=== PATIENT | male | born 1965 | race Caucasian/White ===

== ENCOUNTER 2018-12-03 22:09 | Emergency (ER) | payer MEDICARE, SELFPAY ==
[2018-12-03 22:14] VITALS: BP 202/95; PULSE 95; RESP 16; TEMP 36.4; O2SAT 99
[2018-12-03] MEDS: LORazepam 1 MG TAB PO (22:41)
--- NOTE | 2018-12-03 23:02 | W.ED.GENAD ---
Discharge Plan Disposition Patient Disposition: [facility] Condition: Stable Discharge Details Chief Complaint: Suicide-Atempt Clinical Impression: Depression Primary Care Provider: None,None ED Provider: Yogesh Dodge Home Meds and New Rx's Prescriptions: No Action diazepam [Valium] 10 MG tablet 10 mg PO TID RF: 0 lamotrigine [Lamictal] 25 mg Tablet, Chewable Dispersible 50 mg PO DAILY RF: 0 metoprolol tartrate 50 mg Tablet 50 mg PO DAILY RF: 0 Discharge Data Discharge Date/Time-TO BE ENTERED AT DEPARTURE: 12/04/18 12:24 Medical Decision Making <Colton Del Valle MD - Last Filed: 12/05/18 20:08> Patient brought in for mental health evaluation. He has superficial lacerations to the neck and wrist which did not require suturing. We will update his tetanus. Will obtain EKG and labs for medical clearance. We will give Ativan for his agitation/irritability. Will have a CPOS assigned. Mental health to see. 00:15 - EKG is normal. Laboratory studies are fine. Alcohol level 186. Aspirin low normal below 10. Tylenol negative. Drug screen positive for benzodiazepines only. Mental health notified and on the way in. Patient calm after Ativan. 08:00 -No issues overnight. Patient has been seen by mental health. Continues to have CPOS present. Is on a voluntary at this point for admission. If changes mind and wants to leave needs reevaluation and possible he EE. Asking for a Lidoderm patch for a chronic intermittent pain problem. Will sign out to oncoming physician while waiting for responses back from psychiatric facilities contacted last night by mental health. Lab Data Lab results reviewed: Yes I reviewed the patient's lab results. ECG Data Attestation: I personally reviewed and interpreted this ECG (s) as follows: Interpretation: Normal sinus rhythm at a rate of 63. Left axis. Normal intervals. Early repolarization in precordial leads. Otherwise normal ST segments. <Yogesh Dodge MD - Last Filed: 12/04/18 11:56> ECG Data Attestation: I personally reviewed and interpreted this ECG (s) as follows: Prior ECG tracings: not available for review Interpretation: sinus rhythm, let anterior fascicular block, left axis, no acute st t wave ischemic changes HPI <Colton Del Valle MD - Last Filed: 12/05/18 20:08> General Mode of arrival: ambulatory. Date/Time Provider Initiated Documentation: 12/03/18 22:35. Limitations to Documentation: no limitations. Information obtained by: patient and family. HPI Narrative: Patient brought in by family member for mental health evaluation. We did receive a phone call from the forgesmith stating that patient had cut himself and left a will signed in blood. Patient has been drinking tonight. Apparently patient's providers were trying to wean him off benzodiazepines. They tried him on Lamictal while doing this. He had issues and adverse effects with the Lamictal. He has become more depressed. He denies overdosing. He denies street drugs. He has back pain but he has chronic back problems. He has been using Tylenol and Motrin for this. He feels very agitated internally but appears to be in relative control externally. Family member is staying in the room with him. Related Data Home Medications Medication Instructions Recorded Confirmed diazepam [Valium] 10 mg PO TID 01/04/14 12/04/18 lamotrigine [Lamictal] 50 mg PO DAILY 12/04/18 12/04/18 metoprolol tartrate 50 mg PO DAILY 12/04/18 12/04/18 Allergies Allergy/AdvReac Type Severity Reaction Status Date / Time No Known Allergies Allergy Unverified 01/04/14 18:57 General Stated Complaint: Suicide-Atempt TERELL: 2 Review of Systems <Colton Del Valle MD - Last Filed: 12/05/18 20:08> Constitutional Denies fever(s), Reports frequent falls (after starting lamictal), Denies headache(s) and Denies weakness Eyes Denies change in vision and Denies eye pain ENT Denies vertigo, Denies otalgia, Denies headache(s), Denies nasal congestion, Denies neck pain and Denies sore throat Cardiovascular Denies chest pain, Denies edema and Denies dyspnea Respiratory Denies cough and Denies dyspnea Gastrointestinal Denies abdominal pain, Denies diarrhea, Denies nausea and Denies vomiting Musculoskeletal Reports back pain and Denies neck pain Integumentary/Breasts Reports wounds Neurologic Denies vertigo, Reports frequent falls (after starting lamictal), Denies headache(s), Denies focal weakness, Denies paresthesias and Denies weakness Psychiatric Reports irritability and Reports suicidal ideation PFS <Colton Del Valle MD - Last Filed: 12/05/18 20:08> Medical History Anxiety (Chronic) Back pain (Chronic) HTN (hypertension) (Chronic) Social History Smoking and Tabacco status: Current every day Exam <Colton Del Valle MD - Last Filed: 12/05/18 20:08> Const General: cooperative, no acute distress and intoxicated appearing Orientation: alert and oriented x3 HENMT Head: normocephalic and atraumatic Eyes Pupils: PERRL EOM: EOM intact bilaterally Neck Neck: full ROM, trachea midline and supple Other: superficial lacerations to right anterior neck Resp Effort & Inspection: normal respiratory effort Auscultation: clear to auscultation bilaterally Cardio Rate: regular rate Rhythm: regular rhythm Heart Sounds: S1 normal and S2 normal Skin Trauma: laceration (left wrist and right neck; superficial) Neuro General: alert, oriented x3, gait normal, no focal motor deficits and CN's II-XI intact bilaterally Speech: abnormal speech slurred (mild) Extrem General: no clubbing, cyanosis or edema Psych Appearance: grossly normal Mental Status: mental status grossly normal Speech and Movement: slurred speech (mild) Mood: irritable mood Affect: irritable affect Attitude: cooperative Thought Process: circumstantial Thought Content: suicidality Insight: limited Judgment: poor Course <Colton eDl Valle MD - Last Filed: 12/05/18 20:08> Vital Signs Temperature 97.5 F L 12/03/18 22:14 Pulse 95 H 12/03/18 22:14 Respiratory Rate 16 12/03/18 22:14 Blood Pressure 202/95 H 12/03/18 22:14 Pulse Oximetry 99 12/03/18 22:14 Temperature 97.5 F L 12/03/18 22:14 Temperature Source Temporal Artery Scan 12/03/18 22:14 Pulse 95 H 12/03/18 22:14 Respiratory Rate 16 12/03/18 22:14 Respiratory Effort 12/03/18 22:16 Blood Pressure 202/95 H 12/03/18 22:14 Blood Pressure Position Sitting 12/03/18 22:14 Pulse Oximetry 99 12/03/18 22:14 Oxygen Delivery Method Room Air 12/03/18 22:14 Oxygen Flow Rate 0 12/03/18 22:14 Sign Out <Colton Del Valle MD - Last Filed: 12/05/18 20:08> Sign Out Data: Sign Out Comment: pending psychiatric placement Last updated by Colton Del Valle MD at 12/04/18 08:02 Post-Handoff Eval: pt has been stable here, has had htn but missed his home metorpolol dose last night so this was ordered and also requesting valium and feels like he will get agitated if not, will order this. AWaiting mental health placement, if none found will be signed out at change of shift to oncoming provider [facility], dwayne calderon sewing demonstrator accepting provider. PT will go by . Has remained calm and stable here, caox4
[2018-12-03 23:05] LABS: Abs Immature Grans 0.01 k/cumm (0.0-0.09); Absolute Basophil Count 0.02 k/cumm (0.0-0.2); Absolute Eosinophil Count 0.03 k/cumm (0.0-0.7); Absolute Lymphocyte Count 2.12 k/cumm (1.2-3.4); Absolute Monocyte Count 0.42 k/cumm (0.11-0.7); Absolute Neutrophil Count 2.69 k/cumm (1.2-6.7); Basophils % 0.4; Eosinophils % 0.6; HCT 45.4 % (40.0-50.0); HGB 15.5 g/dL (13.5-17.5); Immature Grans % 0.2; Lymphocytes % 40.1; Mean Corp. HGB Concentration 34.1 g/dL (32.0-36.0); Mean Corpuscular Volume 90.8 fL (80-95); Mean Platelet Volume 9.1 fL (8.0-11.0); Monocytes % 7.9; Neutrophils % 50.8; Platelet Count 198 x1000/uL (130-400); White Blood Cell Count 5.29 k/cumm (4.4-10.8)
[2018-12-03 23:09] LABS: Tricyclic Antidepressants Negative (Negative)
--- NOTE | 2018-12-03 23:12 | ED.GENADUL_ITS ---
Discharge Plan Disposition Patient Disposition: [facility] Condition: Stable Discharge Details Chief Complaint: Suicide-Atempt Clinical Impression: Depression Primary Care Provider: None,None ED Provider: Yogesh Dodge Home Meds and New Rx's Prescriptions: No Action diazepam [Valium] 10 MG tablet 10 mg PO TID RF: 0 lamotrigine [Lamictal] 25 mg Tablet, Chewable Dispersible 50 mg PO DAILY RF: 0 metoprolol tartrate 50 mg Tablet 50 mg PO DAILY RF: 0 Discharge Data Discharge Date/Time-TO BE ENTERED AT DEPARTURE: 12/04/18 12:24 Medical Decision Making <Colton Del Valle MD - Last Filed: 12/05/18 20:08> Patient brought in for mental health evaluation. He has superficial lacerations to the neck and wrist which did not require suturing. We will update his tetanus. Will obtain EKG and labs for medical clearance. We will give Ativan for his agitation/irritability. Will have a CPOS assigned. Mental health to see. 00:15 - EKG is normal. Laboratory studies are fine. Alcohol level 186. Aspirin low normal below 10. Tylenol negative. Drug screen positive for benzodiazepines only. Mental health notified and on the way in. Patient calm after Ativan. 08:00 -No issues overnight. Patient has been seen by mental health. Continues to have CPOS present. Is on a voluntary at this point for admission. If changes mind and wants to leave needs reevaluation and possible he EE. Asking for a Lidoderm patch for a chronic intermittent pain problem. Will sign out to oncoming physician while waiting for responses back from psychiatric facilities contacted last night by mental health. Lab Data Lab results reviewed: Yes I reviewed the patient's lab results. ECG Data Attestation: I personally reviewed and interpreted this ECG (s) as follows: Interpretation: Normal sinus rhythm at a rate of 63. Left axis. Normal intervals. Early repolarization in precordial leads. Otherwise normal ST segments. <Yogesh Dodge MD - Last Filed: 12/04/18 11:56> ECG Data Attestation: I personally reviewed and interpreted this ECG (s) as follows: Prior ECG tracings: not available for review Interpretation: sinus rhythm, let anterior fascicular block, left axis, no acute st t wave ischemic changes HPI <Colton Del Valle MD - Last Filed: 12/05/18 20:08> General Mode of arrival: ambulatory . Date/Time Provider Initiated Documentation: 12/03/18 22:35 . Limitations to Documentation: no limitations . Information obtained by: patient and family . HPI Narrative: Patient brought in by family member for mental health evaluation. We did receive a phone call from the [employer] security officer stating that patient had cut himself and left a will signed in blood. Patient has been drinking tonight. Apparently patient's providers were trying to wean him off benzodiazepines. They tried him on Lamictal while doing this. He had issues and adverse effects with the Lamictal. He has become more depressed. He denies overdosing. He denies street drugs. He has back pain but he has chronic back problems. He has been using Tylenol and Motrin for this. He feels very agitated internally but appears to be in relative control externally. Family member is staying in the room with him. Related Data Home Medications Medication Instructions Recorded Confirmed diazepam [Valium] 10 mg PO TID 01/04/14 12/04/18 lamotrigine [Lamictal] 50 mg PO DAILY 12/04/18 12/04/18 metoprolol tartrate 50 mg PO DAILY 12/04/18 12/04/18 Allergies Allergy/AdvReac Type Severity Reaction Status Date / Time No Known Allergies Allergy Unverified 01/04/14 18:57 General Stated Complaint: Suicide-Atempt TERELL: 2 Review of Systems <Colton Del Valle MD - Last Filed: 12/05/18 20:08> Constitutional Denies fever(s), Reports frequent falls (after starting lamictal), Denies headache(s) and Denies weakness Eyes Denies change in vision and Denies eye pain ENT Denies vertigo, Denies otalgia, Denies headache(s), Denies nasal congestion, De nies neck pain and Denies sore throat Cardiovascular Denies chest pain, Denies edema and Denies dyspnea Respiratory Denies cough and Denies dyspnea Gastrointestinal Denies abdominal pain, Denies diarrhea, Denies nausea and Denies vomiting Musculoskeletal Reports back pain and Denies neck pain Integumentary/Breasts Reports wounds Neurologic Denies vertigo, Reports frequent falls (after starting lamictal), Denies headache(s), Denies focal weakness, Denies paresthesias and Denies weakness Psychiatric Reports irritability and Reports suicidal ideation PFS <Colton Del Valle MD - Last Filed: 12/05/18 20:08> Medical History Anxiety (Chronic) Back pain (Chronic) HTN (hypertension) (Chronic) Social History Smoking and Tabacco status: Current every day Exam <Colton Del Valle MD - Last Filed: 12/05/18 20:08> Const General: cooperative, no acute distress and intoxicated appearing Orientation: alert and oriented x3 HENMT Head: normocephalic and atraumatic Eyes Pupils: PERRL EOM: EOM intact bilaterally Neck Neck: full ROM, trachea midline and supple Other: superficial lacerations to right anterior neck Resp Effort & Inspection: normal respiratory effort Auscultation: clear to auscultation bilaterally Cardio Rate: regular rate Rhythm: regular rhythm Heart Sounds: S1 normal and S2 normal Skin Trauma: laceration (left wrist and right neck; superficial) Neuro General: alert, oriented x3, gait normal, no focal motor deficits and CN's II-XI intact bilaterally Speech: abnormal speech slurred (mild) Extrem General: no clubbing, cyanosis or edema Psych Appearance: grossly normal Mental Status: mental status grossly normal Speech and Movement: slurred speech (mild) Mood: irritable mood Affect: irritable affect Attitude: cooperative Thought Process: circumstantial Thought Content: suicidality Insight: limited Judgment: poor Course <Colton Del Valle MD - Last Filed: 12/05/18 20:08> Vital Signs Temperature 97.5 F L 12/03/18 22:14 Pulse 95 H 12/03/18 22:14 Respiratory Rate 16 12/03/18 22:14 Blood Pressure 202/95 H 12/03/18 22:14 Pulse Oximetry 99 12/03/18 22:14 Temperature 97.5 F L 12/03/18 22:14 Temperature Source Temporal Artery Scan 12/03/18 22:14 Pulse 95 H 12/03/18 22:14 Respiratory Rate 16 12/03/18 22:14 Respiratory Effort 12/03/18 22:16 Blood Pressure 202/95 H 12/03/18 22:14 Blood Pressure Position Sitting 12/03/18 22:14 Pulse Oximetry 99 12/03/18 22:14 Oxygen Delivery Method Room Air 12/03/18 22:14 Oxygen Flow Rate 0 12/03/18 22:14 Sign Out <Colton Del Valle MD - Last Filed: 12/05/18 20:08> Sign Out Data: Sign Out Comment: pending psychiatric placement Last updated by Colton Del Valle MD at 12/04/18 08:02 Post-Handoff Eval: pt has been stable here, has had htn but missed his home metorpolol dose last night so this was ordered and also requesting valium and feels like he will get agitated if not, will order this. AWaiting mental health placement, if none found will be signed out at change of shift to oncoming provider [facility], dwayne calderon maritime engineer accepting provider. PT will go by . Has remained calm and stable here, caox4
[2018-12-03 23:17] LABS: *AMPHETAMINES SCREEN URINE Negative (Negative); *BARBITURATES SCREEN URINE Negative (Negative); *BENZODIAZEPINES SCREEN URINE POSITIVE (Negative); Cannabinoids THC Negative (Negative); Cocaine Screen,Urine Negative (Negative); METHADONE URINE SCREEN Negative (Negative); OPIATES URINE SCREEN Negative (Negative)
[2018-12-03 23:22] LABS: ALT 23 U/L (12-78); AST 15 U/L (15-37); Alkaline Phosphatase 72 U/L (46-116); Anion Gap 9.7 mmol/L (3-11); BUN 9 mg/dL (7-18); Bilirubin, Total 0.3 mg/dL (0.2-1.0); CO2 29.3 mmol/L (21.0-32.0); CREATININE 1.04 mg/dL (0.70-1.30); Calcium 8.7 mg/dL (8.5-10.1); Chloride 106 mmol/L (98-107); ETHANOL BLOOD 186.2 mg/dL (<3); Glucose 83 mg/dL (70-100); Magnesium 2.3 mg/dL (1.8-2.4); Potassium 4.2 mmol/L (3.5-5.1); Sodium 145 mmol/L (136-145); Total Protein 7.9 g/dL (6.4-8.2)
[2018-12-03 23:36] LABS: Salicylate 6.9 mg/dL (2.8-20.0)
[2018-12-03 23:39] LABS: Acetaminophen < 2 ug/mL (10-30)
--- NOTE | 2018-12-04 01:39 | PDOC.MHCN ---
Date of service: 12/04/18 Time of Service: 01:40 Mental Health Crisis Note Presenting Issue How did you arrive at the ED and why did you come: Patient was brought to hospital by a dear friend. He had been texting her that he was going to kill himself. When she arrived at his home he had written a will and signed it in blood. He had slit his wrist and neck and produced quite a bit of blood. She phoned police but he allowed her to bring him in. Precipitating Factors Patient had been tapered off benzodiazapines, which he had been prescribed for 25 years and given lamictal which caused an adverse reaction, he is withdrawing from medication and has felt altered. According to his friend , his behavior and actions are not who he is and he is experiencing suicidal ideation, anxiety and paranoia due to withdrawal. Disposition BEHAVIOR: Alternates between being cooperative and calm to agitated and angry. EYE CONTACT: excellent MOOD: congruent to behavior, erratic. AFFECT: Agitation, anger, irritability APPETITE: good SLEEP(trouble falling/staying asleep: Poor, has trouble falling and staying asleep Plan consultation with Dr. Del Valle concluded that this patient is experiencing altered mental state due to withdrawal from benzodiazapines and is in need of higher level of care. Patient is in active suicidal ideation having made a serious attempt and is not safe at home. The plan is to call hospitals for bed availability. Referral information will be sent to [facility], [facility], [facility] Hospitals will review information and should be contacted during morning business hours for updates. Patient is observed for suicide watch. Signature Clinician's Name/Title: Wilma Kyle [facility] [address] Emergency Services Clinician
--- NOTE | 2018-12-04 02:12 | PDOC.MHCN_ITS ---
Date of service: 12/04/18 Time of Service: 01:40 Mental Health Crisis Note Presenting Issue How did you arrive at the ED and why did you come: Patient was brought to hospital by a dear friend. He had been texting her that he was going to kill himself. When she arrived at his home he had written a will and signed it in blood. He had slit his wrist and neck and produced quite a bit of blood. She phoned police but he allowed her to bring him in. Precipitating Factors Patient had been tapered off benzodiazapines, which he had been prescribed for 25 years and given lamictal which caused an adverse reaction, he is withdrawing from medication and has felt altered. According to his friend , his behavior and actions are not who he is and he is experiencing suicidal ideation, anxiety and paranoia due to withdrawal. Disposition BEHAVIOR: Alternates between being cooperative and calm to agitated and angry. EYE CONTACT: excellent MOOD: congruent to behavior, erratic. AFFECT: Agitation, anger, irritability APPETITE: good SLEEP(trouble falling/staying asleep: Poor, has trouble falling and staying asleep Plan consultation with Dr. Del Valle concluded that this patient is experiencing altered mental state due to withdrawal from benzodiazapines and is in need of higher level of care. Patient is in active suicidal ideation having made a serious attempt and is not safe at home. The plan is to call hospitals for bed availability. Referral information will be sent to [facility], [facility], [facility] and [facility] Hospitals will review information and should be contacted during morning business hours for updates. Patient is observed for suicide watch. Signature Clinician's Name/Title: Wilma Kyle [facility] Emergency Services Clinician
--- NOTE | 2018-12-04 03:10 | PDOC.ERCMPRO ---
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 He presents also with anxiety, paranoia, SI and AMS in the setting of likely adverse effects to medication changes. CM will facilitate interdepartmental huddle with [facility] screener for safety planning considerations and meet with patient to review [facility] policy and safety plan, establish individual wishes for treatment and maintain patient rights. In the interim; please note safety plan below to guide patient care. SAFETY PLAN: 1. Will remain on suicide precautions and in paper clothes, does have memorial shirt in CPSO possession in the room. 2. Will remain in room under direct supervision of one-on-one staff at all times provided by COLLIN, PROGRAM AND RESEARCH COORDINATOR doctor podiatric medicine. 3. May have paper cups, plates, finger foods in which to eat his meals. 4. Follow [facility] Management of the Admitted Behavioral Health Patient policy. 5. Comfort bath system only. 6. No personal belongings; shirt as above. Permitted Nicotrol Inhaler. 7. Visitors limited to Claudia Means at this time. 8. Permitted television and remote in the event he is moved to MED/SURG 9. Due to VOLUNTARY status, if patient wishes to leave [facility], the [facility] electronic instrument trades worker must be contacted to re-evaluate patient prior to patient exiting the building. Huddle to revisit safety plan will take place in the morning; to be established with patient, and care team, to adhere to patient goals, identify restrictions based on behavioral status, address nutrition, and determine allowed personal belongings, tools for hygiene and personal care. As well plan will determine level of activity including ambulation, level of supervision, visitors, and determine privileges based on level of acuity, behaviors and level of engagement by patient. - MH Services (Omit if N/A) Current MH Services: Psychiatric Inp (VOLUNTARY)
--- NOTE | 2018-12-04 03:19 | CMPROGNOTE_ITS ---
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 He presents also with anxiety, paranoia, SI and AMS in the setting of likely adverse effects to medication changes. CM will facilitate interdepartmental huddle with [facility] screener for safety planning considerations and meet with patient to review [facility] policy and safety plan, establish individual wishes for treatment and maintain patient rights. In the interim; please note safety plan below to guide patient care. SAFETY PLAN: 1. Will remain on suicide precautions and in paper clothes, does have memorial shirt in CPSO possession in the room. 2. Will remain in room under direct supervision of one-on-one staff at all times provided by COLLIN, LEARNING COORDINATOR doctor of audiology. 3. May have paper cups, plates, finger foods in which to eat his meals. 4. Follow [facility] Management of the Admitted Behavioral Health Patient policy. 5. Comfort bath system only. 6. No personal belongings; shirt as above. Permitted Nicotrol Inhaler. 7. Visitors limited to Claudia Means at this time. 8. Permitted television and remote in the event he is moved to MED/SURG 9. Due to VOLUNTARY status, if patient wishes to leave [facility], the [facility] sort line worker must be contacted to re-evaluate patient prior to patient exiting the building. Huddle to revisit safety plan will take place in the morning; to be established with patient, and care team, to adhere to patient goals, identify restrictions based on behavioral status, address nutrition, and determine allowed personal belongings, tools for hygiene and personal care. As well plan will determine level of activity including ambulation, level of supervision, visitors, and d etermine privileges based on level of acuity, behaviors and level of engagement by patient. - MH Services (Omit if N/A) Current MH Services: Psychiatric Inp (VOLUNTARY)
[2018-12-04] MEDS: Lidocaine 5% Patch 1 PATCH TP (07:19)
[2018-12-04] MEDS: Diazepam 5 MG TAB 10 MG PO (10:43)
[2018-12-04] MEDS: Metoprolol 50 MG TAB PO (10:43)
[2018-12-04 10:50] VITALS: BP 150/88; PULSE 86; RESP 18; TEMP 36.7; O2SAT 97
--- NOTE | 2018-12-04 10:56 | PDOC.ERCMPRO ---
Care Management Progress Note 12/04-Met multiple times with Krishna this am. He has been appropriate with staff and easily engages in conversation. Krishna has been allowed to have his cell phone (discussion with Dr. Dodge and he is in agreement). Krishna will also have a hot meal at lunch. He will be allowed to have a metal spoon (discussion with Dr. Dodge and he is in agreement) with nursing to account for post meals. Patient has a CPSO with him. Casimiro from [facility] is now here and states that Caleb will take Krishna if he is amenable to going to the LGBTQ unit. Casimiro discussed with Krishna and he is in agreement. Casimiro called [facility] back and they have accepted Krishna and have a bed. Currently waiting for the provider to provider and nurse to nurse reports. Once these are completed, will set up Crime Scene Technician transport. Notified Sara BALL Nursing Credit Collections Rep of the above. Notified Sheriff Evan, of the above for transport.
--- NOTE | 2018-12-04 11:00 | CMPROGNOTE_ITS ---
Care Management Progress Note 12/04-Met multiple times with Krishna this am. He has been appropriate with staff and easily engages in conversation. Krishna has been allowed to have his cell phone (discussion with Dr. Dodge and he is in agreement). Krishna will also have a hot meal at lunch. He will be allowed to have a metal spoon (discussion with Dr. Dodge and he is in agreement) with nursing to account for post meals. Patient has a CPSO with him. Casimiro from [facility] is now here and states that [facility] will take Krishna if he is amenable to going to the LGBT[facility] unit. Casimiro discussed with Krishna and he is in agreement. Casimiro called [facility] back and they have accepted Krishna and have a bed. Currently waiting for the provider to provider and nurse to nurse reports. Once these are completed, will set up [facility]. Notified [facility] [employer] of the above. Notified Sheriff Evan, of the above for transport.
[2018-12-04 11:51] VITALS: BP 150/88; PULSE 86; RESP 18; TEMP 36.7; O2SAT 97
--- NOTE | 2018-12-04 12:03 | PDOC.MHCN ---
Date of service: 12/04/18 Time of Service: 12:03 Mental Health Crisis Note Presenting Issue How did you arrive at the ED and why did you come: Arrived in e.r. following a suicide attempt. Precipitating Factors admits to si and disclosed of treatment issues that may relate to anxiety/depression. He does not feel he is able to control his emotions due to a medical change that has occurred from a med. change. Therefore he feels he is unable to trust himself or create a safety plan he can rely on. Disposition BEHAVIOR: cooperative but animated and loud EYE CONTACT: good MOOD: anxious AFFECT: elevated APPETITE: good SLEEP(trouble falling/staying asleep: trouble sleeping Plan admit to [facility] is accepted. He will be transported by [facility]. Signature Clinician's Name/Title: Casimiro Wheeler MA [facility]
--- NOTE | 2018-12-04 12:09 | PDOC.MHCN_ITS ---
Date of service: 12/04/18 Time of Service: 12:03 Mental Health Crisis Note Presenting Issue How did you arrive at the ED and why did you come: Arrived in e.r. following a suicide attempt. Precipitating Factors admits to si and disclosed of treatment issues that may relate to anxiety/depression. He does not feel he is able to control his emotions due to a medical change that has occurred from a med. change. Therefore he feels he is unable to trust himself or create a safety plan he can rely on. Disposition BEHAVIOR: cooperative but animated and loud EYE CONTACT: good MOOD: anxious AFFECT: elevated APPETITE: good SLEEP(trouble falling/staying asleep: trouble sleeping Plan admit to [facility] is accepted. He will be transported by [facility]. Signature Clin[facility] Name[facility]
== END 2018-12-04 12:24 | disposition short-term general hospital (02) ==
PROVIDERS: Emergency Medicine; Emergency Provider Emergency Medicine
DX: F41.8 Other specified anxiety disorders (principal); T42.75XA Adverse effect of unspecified antiepileptic and sedative-hypnotic drugs, initial encounter; S61.512A Laceration without foreign body of left wrist, initial encounter; S11.91XA Laceration without foreign body of unspecified part of neck, initial encounter; X78.1XXA Intentional self-harm by knife, initial encounter; Z75.1 Person awaiting admission to adequate facility elsewhere; F10.129 Alcohol abuse with intoxication, unspecified; Y90.6 Blood alcohol level of 120-199 mg/100 ml; I10 Essential (primary) hypertension
CPT/HCPCS: 36415; 80053; 80307; 90471; 93005; 99285; 80320; 80329; 83735; 85025; 93010